=== PATIENT | male | born 1955 | race African-American/Black ===

== ENCOUNTER 2023-12-25 12:38 | Emergency (ER) | payer OTHER ==
[2023-12-25 13:43] VITALS: BP 138/81; PULSE 96; RESP 18; TEMP 97.4; BMI 18.8
[2023-12-25] MEDS: MAGNESIUM SULFATE IN WATER 2 GM/50 ML IVPB IVPB ONE (14:19)
[2023-12-25] MEDS: SODIUM CHLORIDE 1,000 ML IV STA (15:08)
[2023-12-25] MEDS: FOLIC ACID 1 MG TABLET (FP) PO ONE (15:09)
[2023-12-25] MEDS: THIAMINE HCL 200 MG/2 ML VIAL IVPB ONE (15:09)
[2023-12-25 15:12] LABS: BASO % 0.3 % (0-2.0); EOS % 1.5 % (0-4.5); HEMATOCRIT 35.6 % (35.4-49); HEMOGLOBIN 11.3 GM/dL (11.7-16.9); LYMPH % 8.5 % (8-40); MCHC 31.8 g/dl (32.0-35.9); MEAN CELL VOLUME 88.2 fl (80-96); MEAN PLT VOLUME 9.3 fl (7.5-11.1); MONO % 8.9 % (3.8-10.2); NEUT % 80.8 % (42.8-82.8); PLATELET COUNT 224 10^3/uL (134-434); RBC 4.03 M/mm3 (4.00-5.60); RDW 19.3 % (11.9-15.9); WHITE BLOOD COUNT 3.9 K/mm3 (4.0-10.0)
[2023-12-25 15:25] LABS: CHLORIDE 116 mmol/L (98-107); POTASSIUM 5.8 mmol/L (3.5-5.1); SODIUM 144 mmol/L (136-145)
[2023-12-25 15:27] LABS: ALBUMIN 2.1 g/dl (3.4-5.0); ANION GAP 6 mmol/L (4-13); BLOOD UREA NITROGEN 19.9 mg/dL (7-18); CO2 22 mmol/L (21-32); MAGNESIUM 1.9 mg/dL (1.8-2.4)
[2023-12-25 15:28] LABS: GLUCOSE,RANDOM 48 mg/dL (74-106)
[2023-12-25 15:30] LABS: CREATININE 0.7 mg/dL (0.55-1.3); SGOT/AST 39 U/L (15-37); SGPT/ALT 26 U/L (13-61)
[2023-12-25 15:32] LABS: BILIRUBIN,TOTAL 0.4 mg/dL (0.2-1)
[2023-12-25 15:33] LABS: ALK PHOS 158 U/L (45-117)
[2023-12-25] MEDS ORDERED: DEXTROSE 50%-WATER 25 GM/50 ML DISP.SYRIN ONE (15:45)
[2023-12-25] MEDS: DEXTROSE 50%-WATER 25 GM/50 ML DISP.SYRIN IVPUSH ONE (15:51)
[2023-12-25 17:21] LABS: CHLORIDE 117 mmol/L (98-107); SODIUM 140 mmol/L (136-145)
[2023-12-25 17:24] LABS: CALCIUM 7.1 mg/dL (8.5-10.1)
[2023-12-25 17:25] LABS: BLOOD UREA NITROGEN 18.5 mg/dL (7-18); CO2 19 mmol/L (21-32); GLUCOSE,RANDOM 149 mg/dL (74-106)
[2023-12-25 17:28] LABS: ANION GAP 3 mmol/L (4-13); POTASSIUM 7.9 mmol/L (3.5-5.1)
[2023-12-25 17:29] LABS: CREATININE 0.8 mg/dL (0.55-1.3)
[2023-12-25 20:27] LABS: POTASSIUM 4.7 mmol/L (3.5-5.1)
[2023-12-25 20:29] LABS: CALCIUM 7.7 mg/dL (8.5-10.1)
[2023-12-25 20:35] LABS: BLOOD UREA NITROGEN 20.7 mg/dL (7-18)
== END 2023-12-25 22:11 | disposition short-term general hospital (02) ==
LOC: JER 12:38
PROC: 3E033GC Introduction of Other Therapeutic Substance into Peripheral Vein, Percutaneous Approach (ICD-10-PCS; principal; 2023-12-25)
PROC: 3E0337Z Introduction of Electrolytic and Water Balance Substance into Peripheral Vein, Percutaneous Approach (ICD-10-PCS; 2023-12-25)
PROC: 3E0337Z Introduction of Electrolytic and Water Balance Substance into Peripheral Vein, Percutaneous Approach (ICD-10-PCS; 2023-12-25)
DX: F10.129 Alcohol abuse with intoxication, unspecified (principal); R53.1 Weakness; R26.9 Unspecified abnormalities of gait and mobility; Y90.9 Presence of alcohol in blood, level not specified
CPT/HCPCS: 36415; 70450-TC; 72125-TC; 80048; 80053; 82140; 82962; 83735; 84484; 85025; 93005; 93010; 99285-25